=== PATIENT | female | born 1960 | race Caucasian/White ===

== ENCOUNTER 2018-11-07 13:12 | Day surgery (SDC) | payer BC ==
[2018-11-07] VITALS (7 sets, daily range): BP systolic 99–118; BP diastolic 51–76
[~2018-11-07] VITALS: Ht 167 cm; Wt 81.8 kg
--- NOTE | 2018-11-07 13:22 | ED General ---
General Stated Complaint: FEVER;ABD PAIN Source of Information: Patient Exam Limitations: No Limitations History of Present Illness Date Seen by Provider: Nov 07, 2018 Time Seen by Provider: 13:21 Initial Comments To ER with reports of fever abdominal pain. This began yesterday, she's had some nausea. The pain was rather diffuse yesterday seems to have migrated to the right lower quadrant since then. Last food intake was this morning, didn't eat lunch because of a poor appetite. Does not have a temperature of 100 prior to arrival to ER. Timing/Duration: 1-2 Days Severity: Moderate Associated Systoms: Nausea/Vomiting Allergies and Home Medications Allergies Coded Allergies: No Allergy Information Available (Unverified , 11/07/18) Home Medications Hydrocodone Bit/Acetaminophen 1 Ea Tablet, 1 EACH PO Q4H PRN for PAIN-MODERATE Prescribed by: SHAINA STORM on 11/07/18 8987 Patient Home Medication List Home Medication List Reviewed: Yes (Patient had antibiotic) Review of Systems Review of Systems Constitutional: see HPI, fever EENTM: see HPI Respiratory: no symptoms reported Cardiovascular: no symptoms reported Gastrointestinal: RLQ, nausea Genitourinary: no symptoms reported Musculoskeletal: no symptoms reported Skin: no symptoms reported Psychiatric/Neurological: No Symptoms Reported Hematologic/Lymphatic: No Symptoms Reported Physical Exam Vital Signs Vital Signs - First Documented 11/07/18 13:16 Temp 36.7 Pulse 96 Resp 19 B/P (MAP) 137/92 (107) Pulse Ox 99 O2 Delivery Room Air Capillary Refill : Height, Weight, BMI Height: '" Weight: lbs. oz. kg; BMI Method: General Appearance: No Apparent Distress, WD/WN Eyes: Bilateral Eye Normal Inspection, Bilateral Eye PERRL, Bilateral Eye EOMI Neck: Full Range of Motion, Normal Inspection Respiratory: No Accessory Muscle Use, No Respiratory Distress Cardiovascular: Regular Rate, Rhythm, Normal Peripheral Pulses Gastrointestinal: Normal Bowel Sounds, Soft, Tenderness Extremity: Normal Capillary Refill, Normal Inspection Neurologic/Psychiatric: Alert, Oriented x3 Skin: Normal Color, Warm/Dry Progress/Results/Core Measures Suspected Sepsis SIRS Temperature: Pulse: Respiratory Rate: Laboratory Tests 11/07/18 13:25: White Blood Count 10.0 Blood Pressure / Mean: Laboratory Tests 11/07/18 13:25: Creatinine 0.82, INR Comment 1.0, Platelet Count 239, Total Bilirubin 0.8 Results/Orders Lab Results Laboratory Tests Test 11/07/18 13:25 11/07/18 14:43 Range/Units White Blood Count 10.0 4.3-11.0 10^3/uL Red Blood Count 4.27 L 4.35-5.85 10^6/uL Hemoglobin 13.6 11.5-16.0 G/DL Hematocrit 40 35-52 % Mean Corpuscular Volume 93 80-99 FL Mean Corpuscular Hemoglobin 32 25-34 PG Mean Corpuscular Hemoglobin Concent 34 32-36 G/DL Red Cell Distribution Width 12.6 10.0-14.5 % Platelet Count 239 130-400 10^3/uL Mean Platelet Volume 9.0 7.4-10.4 FL Neutrophils (%) (Auto) 74 42-75 % Lymphocytes (%) (Auto) 19 12-44 % Monocytes (%) (Auto) 6 0-12 % Eosinophils (%) (Auto) 1 0-10 % Basophils (%) (Auto) 0 0-10 % Neutrophils # (Auto) 7.5 1.8-7.8 X 10^3 Lymphocytes # (Auto) 1.9 1.0-4.0 X 10^3 Monocytes # (Auto) 0.6 0.0-1.0 X 10^3 Eosinophils # (Auto) 0.1 0.0-0.3 10^3/uL Basophils # (Auto) 0.0 0.0-0.1 10^3/uL Prothrombin Time 14.0 12.2-14.7 SEC INR Comment 1.0 0.8-1.4 Activated Partial Thromboplast Time 28 24-35 SEC Sodium Level 138 135-145 MMOL/L Potassium Level 3.6 3.6-5.0 MMOL/L Chloride Level 104 98-107 MMOL/L Carbon Dioxide Level 25 21-32 MMOL/L Anion Gap 9 5-14 MMOL/L Blood Urea Nitrogen 11 7-18 MG/DL Creatinine 0.82 0.60-1.30 MG/DL Estimat Glomerular Filtration Rate > 60 BUN/Creatinine Ratio 13 Glucose Level 88 70-105 MG/DL Calcium Level 8.9 8.5-10.1 MG/DL Corrected Calcium 8.7 8.5-10.1 MG/DL Total Bilirubin 0.8 0.1-1.0 MG/DL Aspartate Amino Transf (AST/SGOT) 17 5-34 U/L Alanine Aminotransferase (ALT/SGPT) 12 0-55 U/L Alkaline Phosphatase 47 40-136 U/L Total Protein 6.9 6.4-8.2 GM/DL Albumin 4.2 3.2-4.5 GM/DL Urine Color YELLOW Urine Clarity CLEAR Urine pH 7 5-9 Urine Specific Round O 1.010 L 1.016-1.022 Urine Protein NEGATIVE NEGATIVE Urine Glucose (UA) NEGATIVE NEGATIVE Urine Ketones NEGATIVE NEGATIVE Urine Nitrite NEGATIVE NEGATIVE Urine Bilirubin NEGATIVE NEGATIVE Urine Urobilinogen NORMAL NORMAL MG/DL Urine Leukocyte Esterase NEGATIVE NEGATIVE Urine RBC (Auto) 5+ H NEGATIVE Urine RBC 50-100 H /HPF Urine WBC 0-2 /HPF Urine Squamous Epithelial Cells 2-5 /HPF Urine Crystals NONE /LPF Urine Bacteria MODERATE H /HPF Urine Casts NONE /LPF Urine Mucus NEGATIVE /LPF Urine Culture Indicated CULTURE PENDING My Orders Orders - DANNI SPEAR ORGANIC PREPARATION ANALYST Ct Abd/Pelv W (Appendicitis) (11/07/18 13:18) Iohexol Injection (Omnipaque 350 Mg/Ml 1 (11/07/18 13:30) Received Contrast (Hold Metformin- Contr (11/07/18 13:30) Sodium Chloride Flush (Catheter Flush Sy (11/07/18 13:30) Ns (Ivpb) (Sodium Chloride 0.9% Ivpb Bag (11/07/18 13:30) Bupivacaine/Epinephrine 0.25% (Marcaine (11/07/18 14:28) Cefazolin Injection (Ancef Injection) (11/07/18 14:47) Medications Given in ED Current Medications Medications Dose Ordered Sig/Kitty Route Start Time Stop Time Status Last Admin Dose Admin Iohexol 100 ml ONCE ONCE IV 11/07/18 13:30 11/07/18 13:31 DC 11/07/18 13:47 100 ML Sodium Chloride 10 ml NEEDED PRN IV 11/07/18 13:30 11/07/18 13:47 10 ML Sodium Chloride 100 ml ONCE ONCE IV 11/07/18 13:30 11/07/18 13:31 DC 11/07/18 13:47 80 ML Vital Signs/I&O 11/07/18 13:16 Temp 36.7 Pulse 96 Resp 19 B/P (MAP) 137/92 (107) Pulse Ox 99 O2 Delivery Room Air Capillary Refill : Diagnostic Imaging Diagonstic Imaging: CT Comments NAME: [facility] REC#: [id number] PT STATUS: REG ER : 1960 PHYSICIAN: DANNI SPEAR APRN ADMIT DATE: 11/07/18/ER Draft Date of Exam:11/07/18 CT ABD/PELV W (APPENDICITIS) PROCEDURE: CT abdomen and pelvis with contrast, rule out appendicitis. TECHNIQUE: Multiple contiguous axial images were obtained through the abdomen and pelvis after the administration of intravenous contrast. INDICATION: Nausea, vomiting and fever as well as right lower quadrant pain. No prior studies are available for comparison. FINDINGS: The lung bases are clear. No discrete liver mass is detected. The gallbladder is unremarkable. No biliary ductal dilatation is seen. The pancreas and spleen are unremarkable. No adrenal mass is detected. No definite renal calculi or hydronephrosis is detected. Aorta is non-aneurysmal. Small and large bowel loops are normal caliber. There are significant inflammatory changes identified in the right lower quadrant. The appendix appears to be distended and slightly thickwalled. Features are most suggestive of acute appendicitis. No abscess formation or bowel obstruction is seen. There is no free fluid identified. The bladder is unremarkable. Uterus appears to be surgically absent. IMPRESSION: Findings consistent with acute appendicitis. No abscess formation or bowel obstruction is identified. Dictated on workstation # [id number] Dict: 11/07/18 1358 Trans: 11/07/18 1402 [facility] [id number] Interpreted by: REBECCA ELIAS MD Electronically signed by: Departure Communication (Admissions) Time/Spoke to Admitting Phy: 14:17 Dr. Storm, personal friend of the patient's family will be in to take the patient to the operating room. Impression Primary Impression: Appendicitis Qualified Codes: K35.30 - Acute appendicitis with localized peritonitis, without perforation or gangrene Disposition: ADMITTED INPATIENT Condition: Stable Admissions Decision to Admit Reason: Admit from ER (General) Decision to Admit/Date: Nov 07, 2018 Time/Decision to Admit Time: 14:16 Departure-Patient Inst. Referrals: SHAGGY PURVIS MD (PCP) Primary Care Physician Scripts Hydrocodone Bit/Acetaminophen (LORTAB 7.5 MG TABLET) 1 Ea Tablet 1 EACH PO Q4H PRN for PAIN-MODERATE MDD 6, #35 TAB Prov: SHAINA STORM MD 11/07/18 DANNI SPEAR APRN Nov 07, 2018 13:22
[2018-11-07] MEDS ORDERED: NS 100 ML (IVPB) BAG IV ONE (13:30)
[2018-11-07] MEDS ORDERED: HOLD METFORMIN - RECEIVED CONTRAST 20 ML VIAL IV SCH (13:30)
[2018-11-07] MEDS ORDERED: IOHEXOL 350 MG/ML 100 ML (OMNIPAQUE 350) VIAL IV ONE (13:30)
[2018-11-07] MEDS ORDERED: CATHETER FLUSH 10 ML SYR IV PRN (13:30)
[2018-11-07 13:51] LABS: ALANINE AMINOTRANSFERASE 12 U/L (0-55); ALBUMIN 4.2 GM/DL (3.2-4.5); ALKALINE PHOSPHATASE 47 U/L (40-136); BILIRUBIN,TOTAL 0.8 MG/DL (0.1-1.0); BUN/CREATININE RATIO 13; CALCIUM 8.9 MG/DL (8.5-10.1); CARBON DIOXIDE 25 MMOL/L (21-32); CHLORIDE 104 MMOL/L (98-107); CREATININE SERUM 0.82 MG/DL (0.60-1.30); GFR ESTIMATED > 60; GLUCOSE 88 MG/DL (70-105); POTASSIUM 3.6 MMOL/L (3.6-5.0); SODIUM 138 MMOL/L (135-145); TOTAL PROTEIN 6.9 GM/DL (6.4-8.2)
[2018-11-07 13:56] LABS: BASOPHILS % (AUTO) 0 % (0-10); EOSINOPHILS # (AUTO) 0.1 10^3/uL (0.0-0.3); EOSINOPHILS % (AUTO) 1 % (0-10); HEMATOCRIT 40 % (35-52); HEMOGLOBIN 13.6 G/DL (11.5-16.0); LYMPHOCYTES # (AUTO) 1.9 X 10^3 (1.0-4.0); LYMPHOCYTES % (AUTO) 19 % (12-44); MEAN CORPUSCULAR HEMOGLOBIN 32 PG (25-34); MEAN CORPUSCULAR HGB CONC 34 G/DL (32-36); MEAN CORPUSCULAR VOLUME 93 FL (80-99); MONOCYTES # (AUTO) 0.6 X 10^3 (0.0-1.0); MONOCYTES % (AUTO) 6 % (0-12); NEUTROPHILS # (AUTO) 7.5 X 10^3 (1.8-7.8); NEUTROPHILS % (AUTO) 74 % (42-75); PLATELET COUNT 239 10^3/uL (130-400); RED CELL DISTRIBUTION WIDTH 12.6 % (10.0-14.5)
--- NOTE | 2018-11-07 14:03 | Diagnostic Imaging Report ---
PROCEDURE: CT abdomen and pelvis with contrast, rule out appendicitis. TECHNIQUE: Multiple contiguous axial images were obtained through the abdomen and pelvis after the administration of intravenous contrast. INDICATION: Nausea, vomiting and fever as well as right lower quadrant pain. No prior studies are available for comparison. FINDINGS: The lung bases are clear. No discrete liver mass is detected. The gallbladder is unremarkable. No biliary ductal dilatation is seen. The pancreas and spleen are unremarkable. No adrenal mass is detected. No definite renal calculi or hydronephrosis is detected. Aorta is non-aneurysmal. Small and large bowel loops are normal caliber. There are significant inflammatory changes identified in the right lower quadrant. The appendix appears to be distended and slightly thickwalled. Features are most suggestive of acute appendicitis. No abscess formation or bowel obstruction is seen. There is no free fluid identified. The bladder is unremarkable. Uterus appears to be surgically absent. IMPRESSION: Findings consistent with acute appendicitis. No abscess formation or bowel obstruction is identified. Dictated by: Dictated on workstation # [id number]
[2018-11-07] MEDS ORDERED: BUP/EPI 0.25% 1:200,000 (MARCAINE) 10 ML VIAL IJ ONE (14:28)
--- NOTE | 2018-11-07 14:44 | Progress Note-Pre Operative ---
Pre-Operative Progress Note H&P Reviewed The H&P was reviewed, patient examined and no changes noted. Date Seen by Provider: Nov 07, 2018 Time Seen by Provider: 14:30 Date H&P Reviewed: Nov 07, 2018 Time H&P Reviewed: 14:30 Pre-Operative Diagnosis: acute appendicitis. SHAINA WALTERS MD Nov 07, 2018 14:44
[2018-11-07] MEDS ORDERED: HYDROcodone/APAP 7.5 MG/325 MG (LORTAB, LORCET PLUS) TABLET PO PRN (14:45)
[2018-11-07] MEDS ORDERED: morphine INJ 10 MG/ML 1ML (SYR OR VIAL) IVP PRN ×2 (14:45)
[2018-11-07] MEDS ORDERED: ONDANSETRON 4 MG/2 ML (SDV) Z0FRAN IVP PRN ×2 (14:45→16:30)
[2018-11-07] MEDS ORDERED: ACETAMINOPHEN 325 MG TABLET PO PRN (14:45)
[2018-11-07] MEDS ORDERED: ceFAZolin INJECTION 1,000 MG ONE (14:47)
[2018-11-07 14:49] LABS: BILIRUBIN,URINE NEGATIVE (NEGATIVE); CLARITY,URINE CLEAR; COLOR,URINE YELLOW; GLUCOSE, URINE (UA) NEGATIVE (NEGATIVE); KETONES,URINE NEGATIVE (NEGATIVE); LEUKOCYTE ESTERASE ,URINE NEGATIVE (NEGATIVE); NITRITE,URINE NEGATIVE (NEGATIVE); PH,URINE 7 (5-9); PROTEIN,URINE NEGATIVE (NEGATIVE); UROBILINOGEN,URINE NORMAL (NORMAL)
--- NOTE | 2018-11-07 14:50 | HISTORY AND PHYSICAL ---
DATE OF SERVICE: HISTORY OF PRESENT ILLNESS: The patient is a 58-year-old female, who presents with a pain in the right lower abdominal quadrant. She reports that this initially started yesterday and this was associated with some mild fevers and chills and then she states that the pain did subside; however, did reoccur this morning. She does not report any fever nor chills this morning. She was evaluated in the Emergency Department where she was found to have pain in the right lower abdominal quadrant at McBurney's point and a CT scan also confirmed acute appendicitis. PAST MEDICAL HISTORY: None. PAST SURGERIES: Open total hysterectomy, ectopic evacuation x2. ALLERGIES: No known drug allergies. MEDICATIONS: None. SOCIAL HISTORY: Negative smoke, social alcohol. FAMILY HISTORY: Noncontributory. VITAL SIGNS: Stable, afebrile. REVIEW OF SYSTEMS: Well-nourished female, in no acute distress. She is not experiencing any shortness of breath or difficulty breathing. No chest pain, palpitations, diaphoresis. No nausea, vomiting with mild fevers yesterday. No diarrhea, constipation, no red blood per rectum, no dark tarry stools. No recent inadvertent weight loss. All other review of systems negative. PHYSICAL EXAMINATION: CHEST: Clear. Good breath sounds bilaterally. HEART: Regular, no murmurs. HEENT: No scleral icterus. NECK: No cervical lymphadenopathy. ABDOMEN: Soft, nondistended. There is pain in the right lower abdominal quadrant at McBurney's point with voluntary guarding, no rebound. SKIN: Warm, dry. ASSESSMENT AND PLAN: A 58-year-old female with acute appendicitis. The natural history of this disease entitiy was explained to the patient including risk of perforations and sepsis and she is in full understanding of this and would like to proceed with a diagnostic laparoscopy as well as a laparoscopic appendectomy, which we will proceed with. Job ID: [id number] DocumentID: [id number] Dictated Date: 11/07/2018 14:21:13 Food Services Director Date: 11/07/2018 14:49:38 Dictated By: SHAINA WALTERS MD [facility]
--- NOTE | 2018-11-07 14:52 | NUR ---
surgery staff here to consult with pt
[2018-11-07] MEDS ORDERED: LIDOCAINE PF 2% 5 ML (XYLOCAINE) VIAL ONE (14:53)
[2018-11-07] MEDS ORDERED: HYDR-34 PO (14:53)
[2018-11-07] MEDS ORDERED: DEXAMETHASONE 10 MG/ML (DECADRON) 1 ML VIAL ONE (14:53)
[2018-11-07] MEDS ORDERED: proPOfol 200 MG/20 ML (DIPRIVAN) VIAL IV ONE (14:53)
[2018-11-07] MEDS ORDERED: MIDAZOLAM 2 MG/2 ML (VERSED) VIAL ONE (14:53)
[2018-11-07] MEDS ORDERED: ONDANSETRON 4 MG/2 ML (SDV) Z0FRAN ONE ×2 (14:53→16:28)
[2018-11-07] MEDS ORDERED: fentaNYL INJECTION 100 MCG/2 ML AMP ONE (14:53)
--- NOTE | 2018-11-07 14:54 | Discharge Inst-Surgical ---
D/C Lap Instructions-SELENA New, Converted, or Re-Newed RX: RX on Chart Follow Up Appt in 2 weeks Activity as tolerated No driving for 24 hours No driving while on pain medications Incentive Spirometry use every 2 hours while awake Regular Diet Symptoms to Report: Fever over 101 degree F, Nausea/Vomiting Infection Signs and Symptoms to report: Increased redness, Foul odor of wound, Increased drainage Bathing instructions: May shower Operative Area Clean/Dry; Keep incision clean/dry If any problems/questions: Contact your physician or go to Emergency Room SHAINA WALTERS MD Nov 07, 2018 14:54
[2018-11-07 15:00] LABS: BACTERIA,URINE MODERATE /HPF; RBC,URINE 50-100 /HPF; WBC,URINE 0-2 /HPF
[2018-11-07] MEDS ORDERED: ceFAZolin INJECTION 1,000 MG in WATER (STERILE) FOR INJECTION 10 ML IV ONE (15:00)
[2018-11-07] MEDS ORDERED: SCOPOLAMINE 1.5 MG (TRANSDERM-SCOP) PATCH ONE (15:02)
[2018-11-07] MEDS ORDERED: FAMOTIDINE 20MG/2ML IV (PEPCID) ONE (15:06)
[2018-11-07] MEDS: LACTATED RINGERS 1,000 ML IV PRN ×2 (15:11→15:53)
[2018-11-07] MEDS ORDERED: GLYCOPYRROLATE 0.2 MG/ML (ROBINUL) 2 ML VIAL ONE (15:48)
[2018-11-07] MEDS ORDERED: NEOSTIGMINE 3 MG/3 ML VIAL ONE (15:48)
[2018-11-07] MEDS ORDERED: ROCURONIUM 10 MG/ML 5 ML SYRINGE IV ONE (15:49)
[2018-11-07] MEDS ORDERED: morphine INJ 10 MG/ML 1ML (SYR OR VIAL) ONE (16:19)
[2018-11-07] MEDS ORDERED: morphine INJ 10 MG/ML 1ML (SYR OR VIAL) IVP ONE (16:30)
--- NOTE | 2018-11-07 17:20 | NUR ---
Pt arrived from PACU via stretcher, fully awake, alert and oriented x 4. Lap sites x 3 on abdomen, closed with durabond, purple bruising at each site. Pt denies pain, states Dr. Storm told her she will go on home tonight. at bedside.
--- NOTE | 2018-11-07 18:13 | OPERATIVE REPORT ---
DATE OF SERVICE: 11/07/2018 ATTENDING PRIMARY CARE PHYSICIAN: Dr. Hein. PREOPERATIVE DIAGNOSIS: Acute appendicitis. POSTOPERATIVE DIAGNOSIS: Acute appendicitis. PROCEDURE: Laparoscopic appendectomy. SURGEON: Shaina Walters MD ANESTHESIA: General endotracheal. ESTIMATED BLOOD LOSS: Minimal. FINDINGS: Inflamed appendix with no perforation. Remainder of the small bowel, colon and omentum appeared normal. DISPOSITION: The patient tolerated the procedure well. INDICATIONS: The patient is a 58-year-old female, who developed pain in the abdomen, which was more diffuse yesterday. She states that she also did have some mild feelings of fevers as well. This morning, the pain persisted and became more localized towards the right lower abdominal quadrant. She was seen in the Emergency Department and evaluated. Her white count was 10. A CT scan was performed, which did show an edematous appendix with periappendiceal stranding consistent with an acute appendicitis. DESCRIPTION OF PROCEDURE: The patient was brought to the operating room, laid supine on the table. After adequate IV pain and sedative medications and general endotracheal intubation, the abdomen was prepped and draped in standard surgical fashion. A 0.5% Marcaine with epinephrine was then used to anesthetize the overlying skin in the left upper abdominal quadrant and a transverse skin incision was made using a 15 blade. An 0 silk suture was applied to the medial aspect of the incision for retraction and a Veress needle was inserted with a low opening pressure of 0 mmHg. The abdomen was then insufflated to 15 mmHg pressure. The Veress needle was removed and a 5 mm XL trocar was placed followed by a 5 mm 45-degree angle laparoscope visualizing the peritoneal cavity. A 4-quadrant abdominal exploration was performed. There was an inflamed appendix with no perforation. The remainder of the small bowel, colon, omentum appeared normal. Under direct visualization, we then proceed to place an infraumbilical 10 mm port after the skin and peritoneal lining were anesthetized using 0.5% Marcaine with epinephrine and a crescent-shaped skin incision was made using a 15 blade. In a similar manner, a suprapubic 5 mm port was placed. The patient was then placed in Trendelenburg position as well as plane right side up, left side down. The appendix was then bluntly dissected and then retracted towards the anterior abdominal wall. A window was then created between the mesoappendix and the base of the appendix at the cecum using a [place] dissector. A OSCAR 45 mm stapler with a 2.5 mm thickness load was then used to staple and transect the appendix at the cecal base. The mesoappendix was then stapled and transected with the same stapler with a 2.0 mm thickness reload with visualization of good hemostasis. The appendix was removed through the 10 mm port site using an EndoCatch bag. The area was then irrigated and suctioned out. The 10 mm port site fascia and peritoneum were then closed under direct visualization using a Maurice-Gabrielle device and 0 Vicryl suture. The abdomen was desufflated and the remaining ports were removed. All skin incisions were closed with 4-0 monocryl running subcuticular sutures. Wounds were then cleaned and covered with Dermabond. The patient tolerated the procedure well. We will start IV and oral pain medication as well as a clear liquid diet. Once she is tolerating clears, has good pain control with oral pain medications, is ambulating well, we will discharge her home. She will be instructed to do no heavy lifting or exertion for the next two weeks. Job ID: [id number] DocumentID: [id number] Dictated Date: 11/07/2018 17:18:45 Director Long Term Care Date: 11/07/2018 18:13:02 Dictated By: SHAINA WALTERS MD [facility]
--- NOTE | 2018-11-07 18:53 | NUR ---
Pt voided without difficulty
--- NOTE | 2018-11-07 19:30 | NUR ---
fabien gomez pt is awake a/o denies pain post op site drg c/d/i pt has obtained post op pain med rx. discharge instructions reviewed with pt pt will call dr francisco office saturday to schedule follow up appointment taken to car via wheelchair
--- NOTE | 2018-11-09 11:07 | Anesthesia-General Post-Op ---
General Patient Condition Mental Status/LOC: Same as Preop Cardiovascular: Satisfactory Nausea/Vomiting: Absent Respiratory: Satisfactory Pain: Controlled Complications: Absent Post Op Complications Complications None Follow Up Care/Instructions Patient Instructions None needed. Anesthesia/Patient Condition Patient Condition Patient is doing well, no complaints, stable vital signs, no apparent adverse anesthesia problems. No complications reported per nursing. DARIN SPEARS CRNA Nov 09, 2018 11:07
--- NOTE | 2018-11-10 18:08 | Progress Note-Post Operative ---
Post-Operative Progess Note Surgeon (s)/Manager Information (s) Surgeon SHAINA WALTERS MD Manager Information: none Pre-Operative Diagnosis acute appendicitis. Post-Operative Diagnosis same Procedure & Operative Findings Date of Procedure 11/10/18 Procedure Performed/Findings laparoscopic appendectomy Anesthesia Type get Estimated Blood Loss Estimated blood loss (mL): minimal Specimens/Packing Specimens Removed appendix SHAINA WALTERS MD Nov 10, 2018 18:08
== END 2018-11-07 19:23 | disposition home or self-care (01) ==
LOC: EDUNIT# 13:12 → ER 13:13 → SDC 14:53 → 4TH 14:53 → UNDOADMOB 17:16 → 4TH 17:16 → UNDODISOB 19:23 → SDC 19:23
PROVIDERS: ATTEND Surgery
DX: K35.891 Other acute appendicitis without perforation, with gangrene (principal); E66.01 Morbid (severe) obesity due to excess calories; Z90.710 Acquired absence of both cervix and uterus; Z79.899 Other long term (current) drug therapy
CPT/HCPCS: 36415; 74177; 80053; 81000; 85025; 85610; 85730; 87088; 88304

== ENCOUNTER → 2020-01-08 | Outpatient (CLI) | payer BC ==
[~2020-01-08] MED LIST: HYDR-34 PO
== END ==
LOC: LABNPT 08:24
PROVIDERS: ATTEND Emergency Medicine
DX: Z20.828 Contact with and (suspected) exposure to other viral communicable diseases (principal)
CPT/HCPCS: 87635

== ENCOUNTER 2021-09-16 09:45 | Emergency (ER) | payer BC ==
[~2021-09-16] VITALS: Ht 170 cm; Wt 81.8 kg
--- NOTE | 2021-09-16 11:38 | ED General ---
General Chief Complaint: Skin/Wound Problems Stated Complaint: CP,BACK PAIN Nursing Triage Note: reports a papular rash to right side chest and back. appears to be shingles, states she has had pain for about a week. Source of Information: Patient Exam Limitations: No Limitations History of Present Illness Date Seen by Provider: Sep 16, 2021 Time Seen by Provider: 11:19 Initial Comments This 61-year-old woman presents to the emergency room with complaints of generally feeling ill and developing chest pain and upper back pain about a week ago. She has since developed a corresponding rash on the right side of her upper back and the right side of her chest. Rash does not cross midline and has a classic appearance of shingles. She has had physiologic stressors recently including a respiratory infection in July and a COVID-19 vaccination 9 days ago. Her primary care provider is at [facility]. Allergies and Home Medications Allergies Coded Allergies: No Allergy Information Available (Unverified , 11/07/18) Patient Home Medication List Home Medication List Reviewed: Yes Gabapentin (Neurontin) 300 Mg Capsule, 300 MG PO TID Prescribed by: LOGAN DUONG on 09/16/21 1142 Hydrocodone Bit/Acetaminophen (Lortab 7.5 Mg Tablet) 1 Ea Tablet, 1 EACH PO Q4H PRN for PAIN-MODERATE Prescribed by: SHAINA WALTERS on 11/07/18 1453 Hydrocodone/Acetaminophen (Hydrocodone-Acetamin 5-325 mg) 5 Mg-325 Mg Tablet, 1 TAB PO Q4H PRN for PAIN-MODERATE (5-7) Prescribed by: LOGAN DUONG on 09/16/21 1143 Valacyclovir HCl (Valacyclovir) 1,000 Mg Tablet, 1,000 MG PO TID Prescribed by: LOGAN DUONG on 09/16/21 1142 Review of Systems Review of Systems Constitutional: see HPI EENTM: no symptoms reported Respiratory: no symptoms reported Cardiovascular: no symptoms reported Gastrointestinal: no symptoms reported Genitourinary: no symptoms reported : No Musculoskeletal: no symptoms reported Skin: see HPI Psychiatric/Neurological: No Symptoms Reported Hematologic/Lymphatic: No Symptoms Reported Past Wvezjcl-Zpzxut-Crmxap Hx Patient Social History Tobacco Use?: No Use of E-Cig and/or Vaping dev: No Substance use?: No Alcohol Use?: Yes Alcohol type: Wine Alcohol Frequency: Daily Pt feels they are or have been: No Immunizations Up To Date First/Initial COVID19 Vaccinat: 2020 Second COVID19 Vaccination Jonah: 2020 Third COVID19 Vaccination Date: 2020 COVID19 Vaccine Plastics Plater: SHAKEEL Seasonal Allergies Seasonal Allergies: No Past Medical History Surgeries: Yes Appendectomy, Hysterectomy, Orthopedic Respiratory: No Cardiac: No Neurological: No : No Reproductive Disorders: No Genitourinary: No Gastrointestinal: No Musculoskeletal: No Endocrine: No HEENT: No Cancer: No Psychosocial: No Integumentary: No Blood Disorders: No Physical Exam Vital Signs Vital Signs - First Documented 09/16/21 09:51 Temp 36.6 Pulse 71 Resp 18 B/P (MAP) 140/88 (105) Pulse Ox 96 O2 Delivery Room Air Capillary Refill : Less Than 3 Seconds Height, Weight, BMI Height: '" Weight: lbs. oz. kg; 28.00 BMI Method: General Appearance: No Apparent Distress, WD/WN HEENT: PERRL/EOMI, Normal ENT Inspection Neck: Normal Inspection Respiratory: Lungs Clear, Normal Breath Sounds, No Accessory Muscle Use, No Respiratory Distress Cardiovascular: Regular Rate, Rhythm, No Edema, No Murmur Gastrointestinal: Non Tender, Soft Extremity: Normal Inspection, No Pedal Edema Skin: Warm/Dry, Rash (Erythematous vesicular rash just right of midline on the upper back and just right of midline on the right chest suggestive of shingles) Progress/Results/Core Measures Suspected Sepsis SIRS Temperature: Pulse: 71 Respiratory Rate: 18 Blood Pressure 140 /88 Mean: 105 Results/Orders Vital Signs/I&O 09/16/21 09/16/21 09:51 11:53 Temp 36.6 Pulse 71 72 Resp 18 18 B/P (MAP) 140/88 (105) 135/81 Pulse Ox 96 97 O2 Delivery Room Air Room Air Capillary Refill : Less Than 3 Seconds Blood Pressure Mean: 105 Departure Impression Primary Impression: Shingles Qualified Codes: B02.9 - Zoster without complications Disposition: 01 HOME, SELF-CARE Condition: Stable Departure-Patient Inst. Decision time for Depature: 11:35 Referrals: NO,LOCAL PHYSICIAN (PCP/Family) Primary Care Physician Patient Instructions: Shingles (DC) Add. Discharge Instructions: Complete to the valacyclovir antiviral as prescribed. Start as soon as possible. For more severe pain you may use hydrocodone as prescribed. Hydrocodone may cau se drowsiness and constipation. Use with caution. You may wish to use a stool softener while on hydrocodone to prevent constipation. If hydrocodone is ineffective for your pain, you may try gabapentin (Neurontin) as prescribed. You may also use a topical lidocaine cream or ointment purchased [id number]. Avoid exposure to vulnerable individuals including people with immunocompromise state, persons unvaccinated for chickenpox, and women. If you need to be around possible vulnerable individuals, keep your rash well covered, wash hands thoroughly, and keep as much distance as possible between you and the vulnerable persons. Continue these precautions as long as you have active rash with pustules or vesicles. Speak with your primary care provider about a shingles vaccine once this acute episode is over. Return to care if you have worsening symptoms. All discharge instructions reviewed with patient and/or family. Voiced understanding. Scripts Gabapentin (Neurontin) 300 Mg Capsule 300 MG PO TID, #12 CAP Prov: LOGAN SHARPE MD 09/16/21 Hydrocodone/Acetaminophen (Hydrocodone-Acetamin 5-325 mg) 5 Mg-325 Mg Tablet 1 TAB PO Q4H PRN for PAIN-MODERATE (5-7), #20 TAB Prov: LOGAN SHARPE MD 09/16/21 Valacyclovir HCl (Valacyclovir) 1,000 Mg Tablet 1000 MG PO TID, #21 TAB Prov: LOGAN SHARPE MD 09/16/21 LOGAN SHARPE MD Sep 16, 2021 11:38
[2021-09-16] MEDS ORDERED: VALA10007 PO (11:42)
[2021-09-16] MEDS ORDERED: GABA300C PO (11:42)
[2021-09-16] MEDS ORDERED: ACHD5005 PO (11:42)
[2021-09-16 11:53] VITALS: BP 135/81
== END 2021-09-16 11:55 | disposition home or self-care (01) ==
LOC: EDUNIT# 09:45 → ER 09:47
DX: B02.9 Zoster without complications (principal)
CPT/HCPCS: 99281